=== PATIENT | male | born 1975 | race Caucasian/White ===

== ENCOUNTER 2021-05-19 11:41 | Outpatient (REF) | payer OTHER, SELFPAY ==
[2021-05-19 11:48] VITALS: BP 119/70; PULSE 66; RESP 16; TEMP 36.7; O2SAT 99; BMI 31.0
[2021-05-19 12:57] VITALS: BP 136/76; PULSE 62; RESP 16; O2SAT 98
== END 2021-05-19 11:42 | disposition home or self-care (01) ==
LOC: HO.MS 11:41
PROVIDERS: PCP Internal Medicine Endocrinology, Diabetes & Metabolism; Visit Provider Ophthalmology
PROC: (CPT 11640; principal; 2021-05-19 14:30)
DX: C44.1191 Basal cell carcinoma of skin of left upper eyelid, including canthus (principal); Z83.511 Family history of glaucoma
CPT/HCPCS: 11640; 88305

== ENCOUNTER → 2021-06-09 12:24 | Day surgery (SDC) | payer OTHER, SELFPAY ==
[2021-06-09 13:01] VITALS: BP 126/71; PULSE 53; RESP 16; TEMP 36.3; O2SAT 100
[2021-06-09 13:02] VITALS: BMI 30.1
== END ==
PROVIDERS: PCP Internal Medicine Endocrinology, Diabetes & Metabolism; Visit Provider Ophthalmology
PROC: (CPT 67840; principal; 2021-06-09 14:50)
DX: D23.121 Other benign neoplasm of skin of left upper eyelid, including canthus (principal); Z83.511 Family history of glaucoma
CPT/HCPCS: 67840; 88305; 88331